=== PATIENT | male | born 1990 | race Caucasian/White ===

== ENCOUNTER 2020-06-05 19:12 | Emergency (ER) | payer SELFPAY ==
[~2020-06-05] VITALS: Ht 167.6 cm; Wt 56.7 kg
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
[2020-06-05 20:54] LABS: BASOPHILS # (AUTO) 0.1 /CMM (0.0-0.2); BASOPHILS % (AUTO) 0.3 % (0.0-2.0); HEMATOCRIT 42 % (39-51); HEMOGLOBIN 14.6 g/dL (13.5-17.5); LYMPHOCYTES # (AUTO) 0.7 /CMM (0.8-4.8); LYMPHOCYTES % (AUTO) 3.9 % (20.0-44.0); MEAN CORPUSCULAR HGB CONC 35 g/dl (31.0-36.0); MEAN CORPUSCULAR VOLUME 91 fL (80-96); MONOCYTES # (AUTO) 1.5 /CMM (0.1-1.30); MONOCYTES % (AUTO) 8.4 % (2.0-12.0); NEUTROPHILS # (AUTO) 15.4 /CMM (1.8-8.9); NEUTROPHILS % (AUTO) 87.4 % (43.0-81.0); PLATELET COUNT (AUTO) 251 /CMM (150-450); RED BLOOD CELL COUNT(AUTO) 4.58 MIL/uL (4.5-6.0); WHITE BLOOD COUNT (AUTO) 17.6 K/uL (4.3-11.0)
[2020-06-05 21:13] LABS: CALCIUM, SERUM 8.9 mg/dL (8.5-10.1); CARBON DIOXIDE 25 mmol/L (21-32); CHLORIDE 100 mmol/L (98-107); CREATININE 1.3 mg/dL (0.6-1.3); GLUCOSE 90 mg/dL (74-106); POTASSIUM 2.9 mmol/L (3.5-5.1); SODIUM SERUM 137 mmol/L (136-145); UREA NITROGEN, BLOOD 14 mg/dL (7-18)
[2020-06-05 21:17] LABS: ALANINE AMINOTRANSFERASE 28 U/L (12-78); ALBUMIN 4.7 g/dL (3.4-5.0); ALCOHOL, BLOOD < 3 mg/dL (0-0); ALKALINE PHOSPHATASE 57 U/L (46-116); ASPARTATE AMINOTRANSFERASE 52 U/L (15-37); BILIRUBIN,DIRECT 0.2 mg/dL (0.0-0.2); BILIRUBIN,TOTAL 0.8 mg/dL (0.2-1.0)
[2020-06-05 21:18] LABS: ACETAMINOPHEN < 10 ug/ml (10-30)
[2020-06-05 21:40] LABS: BILIRUBIN,URINE Negative (NEGATIVE); COLOR,URINE ORANGE (YELLOW); LEUKOCYTE ESTERASE ,URINE Negative (NEGATIVE); NITRITE, URINE Negative (NEGATIVE); PH,URINE 5.5 (5.0-8.0); PROTEIN,URINE 100 mg/dl (NEGATIVE); UGLUCOSE Negative (NEGATIVE); UROBILINOGEN,URINE 0.2 EU/dL (0.2)
[2020-06-05] MEDS ORDERED: POTASSIUM CHLORIDE 20 MEQ TAB.PRT.SR PO ONE (22:30)
[2020-06-05 22:42] LABS: BACTERIA,URINE Few /HPF (None Seen); MUCUS,URINE Few /LPF (None Seen); SQUAMOUS EPITHELIAL CELL,UR Few /HPF (None Seen); URINE AMORPHOUS URATE Moderate /HPF (None Seen)
[2020-06-06] MEDS ORDERED: POTASSIUM CHLORIDE 20 MEQ TAB.PRT.SR PO ONE (00:08)
--- NOTE | 2020-06-06 03:56 | NUR ---
CHRIS ANDUJAR PAGED FOR PSYCH EVAL PER ER MD ORDER.
--- NOTE | 2020-06-06 04:04 | NUR ---
Rahat healy in [facility] - 06/06/20 at 0405 by CAMILA ASKED THE PT TO PROVIDE HIS NAME, PT STATED "ISAI COPE"
--- NOTE | 2020-06-06 04:05 | NUR ---
ASKED THE PT TO PROVIDE HIS NAME, PT STATED "ISAI COPE"
--- NOTE | 2020-06-06 05:20 | NUR ---
CHRIS, CRISIS TEAM COUNTER TENDER AT BEDSIDE
[2020-06-06] MEDS ORDERED: OLANZAPINE 5 MG TABLET ONE (05:24)
[2020-06-06] MEDS ORDERED: OLANZAPINE 5 MG TABLET PO ONE (05:30)
--- NOTE | 2020-06-06 06:24 | NUR ---
PT AWAKE AND ALERT IN BED. NO ACUTE DISTRESS NOTED. PT CONNECTED TO THE MONITOR AND POX. VSS
--- NOTE | 2020-06-06 07:06 | NUR ---
PT REFUSING TO TELL HIS NAME AND BIRTHDAY. VSS. NO ACUTE DISTRESS NOTED.
--- NOTE | 2020-06-06 09:30 | NUR ---
PATIENT AWAKE, STILL REFUSING TO TALK.
--- NOTE | 2020-06-06 11:00 | NUR ---
GLADIS AT BEDSIDE FOR EVAL. CLEARED THE PATIENT AND GAVE RESOURCES. PATIENT A/OX4, BREATHING EVEN AND UNLABORED, NO SOB NOTED. NEEDS ATTENDED.
--- NOTE | 2020-06-06 11:50 | NUR ---
Patient discharged to home in stable condition. Written and verbal after care instructions given. Patient verbalizes understanding of instruction.
[2020-06-06 11:51] VITALS: BP 124/87
--- NOTE | 2020-06-06 11:58 | NUR ---
SW met with the patient at bedside. Patient seems paranoid however patient is alert and oriented x4. Patient was released from restraints and patient remained calm and cooperative. Patient did not want to provide family/friend contact information and patient did not want to provide information to where he was going. Patient kept stating he will go to [facility]. Patient was given a TAP Card. Patient denied suicidal and homicidal ideation. Patient was cleared by manager bar Mary Estrada, SHREDDING FLOOR EQUIPMENT OPERATOR, CHRISTIANW, MAUDE. Patient was discharged.
[2020-06-06] MEDS ORDERED: ACETAMINOPHEN ES 500 MG TABLET ONE (12:16)
[2020-06-06] MEDS ORDERED: IBUPROFEN 400 MG TABLET PO ONE (12:30)
== END 2020-06-06 11:52 | disposition home or self-care (01) ==
LOC: EDBD 19:17 → ER 19:17
DX: F29 Unspecified psychosis not due to a substance or known physiological condition (principal); F12.10 Cannabis abuse, uncomplicated; E87.6 Hypokalemia; F31.9 Bipolar disorder, unspecified; F20.9 Schizophrenia, unspecified
CPT/HCPCS: 36415; 71045-TC; 80048-TC; 80076-TC; 81001; 83735-TC; 85025-TC; G0480

== ENCOUNTER 2020-06-07 02:06 | Emergency (ER) | payer MEDICAID ==
[~2020-06-07] VITALS: Ht 177.8 cm; Wt 59.0 kg
[2020-06-07 02:50] VITALS: BP 122/70
== END 2020-06-07 04:23 | disposition home or self-care (01) ==
LOC: ER 02:08
DX: R44.0 Auditory hallucinations (principal); F17.200 Nicotine dependence, unspecified, uncomplicated; Z60.2 Problems related to living alone

== ENCOUNTER 2020-06-07 17:27 | Emergency (ER) | payer MEDICAID ==
[~2020-06-07] VITALS: Ht 167.6 cm; Wt 60.8 kg
[2020-06-07 18:33] LABS: BILIRUBIN,URINE LARGE (NEGATIVE); COLOR,URINE YELLOW (YELLOW); LEUKOCYTE ESTERASE ,URINE Negative (NEGATIVE); NITRITE, URINE Negative (NEGATIVE); PROTEIN,URINE 100 mg/dl (NEGATIVE); UGLUCOSE Negative (NEGATIVE)
[2020-06-07 18:50] LABS: WBC,URINE 0-2 /HPF (0-3)
[2020-06-07 18:51] LABS: BACTERIA,URINE Few /HPF (None Seen); SQUAMOUS EPITHELIAL CELL,UR Few /HPF (None Seen)
[2020-06-07 19:20] LABS: BASOPHILS % (AUTO) 0.4 % (0.0-2.0); EOSINOPHILS % (AUTO) 0.4 % (0.0-6.0); HEMOGLOBIN 15.5 g/dL (13.5-17.5)
[2020-06-07 19:22] LABS: HEMATOCRIT 43 % (39-51); LYMPHOCYTES # (AUTO) 1.5 /CMM (0.8-4.8); LYMPHOCYTES % (AUTO) 14.2 % (20.0-44.0); MEAN CORPUSCULAR HGB CONC 36 g/dl (31.0-36.0); MEAN CORPUSCULAR VOLUME 90 fL (80-96); MONOCYTES % (AUTO) 9.2 % (2.0-12.0); NEUTROPHILS % (AUTO) 75.8 % (43.0-81.0); PLATELET COUNT (AUTO) 234 /CMM (150-450); RED BLOOD CELL COUNT(AUTO) 4.78 MIL/uL (4.5-6.0); WHITE BLOOD COUNT (AUTO) 10.6 K/uL (4.3-11.0)
[2020-06-07 19:28] LABS: ALBUMIN 4.5 g/dL (3.4-5.0); BILIRUBIN,TOTAL 1.4 mg/dL (0.2-1.0); CALCIUM, SERUM 9.3 mg/dL (8.5-10.1); POTASSIUM 3.5 mmol/L (3.5-5.1); TOTAL PROTEIN, SERUM 8.5 g/dL (6.4-8.2)
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
[2020-06-07 20:37] LABS: BILIRUBIN,DIRECT 0.4 mg/dL (0.0-0.2)
--- NOTE | 2020-06-08 00:22 | NUR ---
PT ACCEPTED TO [facility]: DR. DIMAS NUMBER FOR REPORT: [phone] EXT [phone] Addendum: 06/08/20 at 0112 by [email or web address] [id number]
--- NOTE | 2020-06-08 00:26 | NUR ---
[facility] ETA 90MINUTES
--- NOTE | 2020-06-08 00:32 | NUR ---
REPORT GIVEN TO DAVID CORTÉS FROM [facility]
--- NOTE | 2020-06-08 01:00 | NUR ---
Patient eloped from facility. ER MD notified.
[2020-06-08 02:06] VITALS: BP 128/79
== END 2020-06-08 02:07 | disposition left against medical advice (07) ==
LOC: ER 17:30
DX: F99 Mental disorder, not otherwise specified (principal); F32.9 Major depressive disorder, single episode, unspecified; Z20.822 Contact with and (suspected) exposure to COVID-19
CPT/HCPCS: 36415; 80048; 80076; 80299; 80307; 80320; 81001; 85025; 87426; 99283; C9803; G0480